=== PATIENT | female | born 1990 | race Caucasian/White ===

== ENCOUNTER 2019-03-31 08:09 | Inpatient (IN) | payer OTHER ==
[2019-03-31] MEDS ORDERED: Buffered Lidocaine 1% SYRIN* 1 ML/SYRINGE INTRADERM ONE (08:46)
[2019-03-31] MEDS ORDERED: Misoprostol TAB* 100 MCG VAGINAL ONE (08:46)
[2019-03-31] MEDS ORDERED: Lactated Ringers 1000 ML Bag* 1,000 ML IV ONE (08:46)
[2019-03-31] MEDS ORDERED: Lactated Ringers 1000 ML Bag* 1,000 ML IV SCH (09:00)
--- NOTE | 2019-03-31 09:07 | HP ---
General Information - Reason for Visit Induction - General Information Maternal Age: 28 Grav: 1 Para: 0 SAB: 0 IEA: 0 Estimated Due Date: 04/21/19 Determined By: LMP Gestational Age in Weeks/Days: 37 Maternal Blood Type and Rh: A Positive - Results this Serology/RPR Result: Non-Reactive Rubella Result: Immune HBsAg Result: Negative HIV Result: Negative GBS Culture Result: Negative Past Medical History Pertinent Past Medical History: Non-Contributory Pertinent Past Surgical History: None Pertinent Family History: Non-Contributory - Antepartal Records Antepartal Records: Reviewed, Complicated by: - IUGR with previously elevated SDR, now normal. 2 mildly elevated BPs but normal for the past month Review of Systems Constitutional: Comfortable CV Complaint: No Respiratory: Shortness of Breath: No Gastrointestinal: No Nausea/Vomiting, Normal Bowel Movement Genitourinary: No Dysuria, No Bleeding, No Leaking Fluid Musculoskeletal: No Complaint Neurological: No Headache Movement: Normal Exam Allergies/Adverse Reactions: Allergies No Known Allergies Allergy (Verified 03/31/19 09:10) - Measurements Height: 5 ft 8 in Weight: 240 lb 8.466 oz Weight in lbs: [phone] Body Mass Index (BMI): 36.6 Pre- Weight: 190 lb Weight Gained This : 50.529 lbs and 0.002 ozs - Exam Breast: Breast Exam Deferred Extremities: No Edema Heart: Normal Rhythm/Heart Sounds HEENT: No Significant Findings Rectal: Rectal Exam Deferred Reflexes: DTR 2+ - Abdominal Exam Abdomen Exam: Non-Tender - Ultrasound/Biophysical Profile Ultrasound Status: Bedside Exam - vertex Targeted Exam Findings Cervical Exam: Closed Station: High Membrane Status: Intact EFM Findings - External Monitor Findings Baseline Heart Rate: 140 External Monitor Findings: Accelerations Present, No Pattern of Variable or Late Decelerations, Variability Moderate, Baseline Stable Contractions: None Assessment/Plan - Assessment Pt is a @37wks with IUGR here for induction of labor. - Obstetrical Risk Factors Obstetrical Risk Factors: IUGR - Plan Plan: Induction, Cervical Ripening
[2019-03-31 10:03] LABS: ABS Basophils 0.1 10^3/ul (0-0.2); ABS Eosinophils 0.1 10^3/ul (0-0.6); ABS Lymphocytes 1.9 10^3/ul (1.0-4.8); ABS Monocytes 0.5 10^3/ul (0-0.8); ABS Neutrophils 6.8 10^3/ul (1.5-7.7); Hematocrit 33 % (35-47); Hemoglobin 11.4 g/dL (12.0-16.0); Lymphocyte % 20.1 %; Mean Corpuscular HGB Conc 34 g/dL (31-36); Mean Corpuscular Hemoglobin 27 pg (27-31); Mean Corpuscular Volume 80 fL (80-97); Mean Platelet Volume 9.5 fL (7.4-10.4); Platelet Count 178 10^3/uL (150-450); Red Blood Count 4.19 10^6 /uL (3.70-4.87); Red Cell Distribution Width 13 % (10-15); White Blood Count 9.5 10^3/uL (3.5-10.8)
[2019-03-31 10:18] LABS: Albumin/Globulin Ratio 1.1 (1-3); Calcium 8.6 mg/dL (8.6-10.3); EGFR African American 167.4 (>60); EGFR Non-African American 138.4 (>60); Globulin 2.8 g/dL (2-4); Potassium 3.7 mmol/L (3.5-5.0); Total Bilirubin 0.2 mg/dL (0.2-1.0); Total Protein 5.8 g/dL (6.4-8.9); Uric Acid 4.6 mg/dL (2.3-6.6)
[2019-03-31 11:12] LABS: Urine Appearance Cloudy; Urine Bilirubin Negative (Negative); Urine Blood Negative (Negative); Urine Color Yellow; Urine Glucose Negative (Negative); Urine Ketones Negative (Negative); Urine Nitrite Negative (Negative); Urine Protein Negative (Negative); Urine Specific Gravity 1.017 (1.010-1.030); Urine Urobilinogen Negative (Negative)
[2019-03-31 11:13] LABS: Urine Bacteria Absent (Absent); Urine Red Blood Cell Trace(0-2/hpf) (Absent); Urine Squamous Epithelial Cell Present (Absent); Urine White Blood Cell Trace(0-5/hpf) (Absent)
[2019-03-31 11:34] LABS: Urine Benzodiazepine Screen None Detected (None Detect); Urine Opiates Screen None Detected (None Detect)
[2019-03-31] MEDS ORDERED: Misoprostol TAB* 100 MCG PO SCH (13:30)
[2019-03-31] MEDS ORDERED: hydrOXYzine HCL TAB* 50 MG PO PRN (22:20)
--- NOTE | 2019-03-31 22:27 | PN ---
Progress Note - Progress Note Date of Service: 03/31/19 Note: Pt starting to feel back pain now. Cx: /-3 FHT: 130bpm. Sections are Cat I, then there are sections with intermittent variable decels but mod variability and +accels. Ctxs q1-4min Plan: expectant management.
[2019-04-01] MEDS ORDERED: Morphine 10 MG/ML VIAL (1 ml) IV ONE (00:45)
[2019-04-01] MEDS ORDERED: Promethazine INJ(RESTRICTED)* 25 MG/ML 1 ML VIAL IV ONE (00:45)
[2019-04-01] MEDS ORDERED: Bupivacaine 0.25% SDV PF* 10 ML VIAL INJ ONE (09:53)
[2019-04-01] MEDS ORDERED: OBEPIDURAL* 250 ML EPIDURAL ONE (10:04)
--- NOTE | 2019-04-01 10:35 | PN ---
Progress Note - Progress Note Date of Service: 04/01/19 Note: See H&P for history. Pt had misprostol x2 yesterday. Ctx appeared to resolve after morphine at 0100, but they seemed to resume this AM. Pt now complaining of fairly intense ctx every 3-5 min, requesting epidural FHT very reassuring with mod variability, no significant decels. Ctx irreg on monitor, not all visualized. Cervix 1cm/90%/-1, intact. Epidural requested.
[2019-04-01] MEDS ORDERED: Lactated Ringers 1000 ML Bag* 1,000 ML IV ONE (10:36)
[2019-04-01] MEDS ORDERED: Phenylephrine 40 MCG/ML SYRINGE IV PUSH PRN (10:36)
[2019-04-01] MEDS ORDERED: EPHEDrine (Pressors)* 50 MG/ML VIAL IV PUSH PRN (10:36)
[2019-04-01] MEDS ORDERED: Famotidine TAB* 20 MG PO PRN (10:36)
[2019-04-01] MEDS ORDERED: Sodium Citrate/Citric Acid* 15 ML UDC PO PRN (10:36)
[2019-04-01] MEDS ORDERED: Lactated Ringers 1000 ML Bag* 1,000 ML IV SCH ×2 (11:00→16:00)
[2019-04-01] MEDS ORDERED: OBEPIDURAL* 250 ML EPIDURAL SCH (11:00)
[2019-04-01] MEDS ORDERED: Oxytocin in LR* 20 UNITS/1,000 ML BAG IVPB SCH (12:00)
[2019-04-01] MEDS ORDERED: ceFOXitin 2 GM IVPREMIX* 2 GM/50 ML BAG ONE (13:35)
[2019-04-01] MEDS ORDERED: Famotidine IV* 10 MG/ML 2 ML (20 mg) ONE (13:36)
[2019-04-01] MEDS ORDERED: ceFOXitin 2 GM IVPREMIX* 2 GM/50 ML BAG IVPB ONE (13:45)
[2019-04-01] MEDS ORDERED: PROCHLORPERAZINE INJ 5 MG/ML 2 ML VIAL ONE (13:51)
[2019-04-01] MEDS ORDERED: Ondansetron INJ* 2 MG/ML VIAL ONE (13:51)
[2019-04-01] MEDS ORDERED: Dexamethasone IV* 4 MG/ML 1 ML (4 MG) ONE (13:51)
[2019-04-01] MEDS ORDERED: Ketorolac INJ* 30 MG/ML 1 ML VIAL ONE (13:51)
[2019-04-01] MEDS ORDERED: EPHEDrine (Pressors)* 50 MG/ML VIAL ONE (13:51)
--- NOTE | 2019-04-01 13:52 | PN ---
Progress Note - Progress Note Date of Service: 04/01/19 Note: Pt comfortable with epidural. Pitocin at 4mU with ctx about every 5 min. FHT noted to have multiple episodes of variable and late declerations with ctx. These resolved a couple times with position changes and O2, but continue to recur. Cx 2cm/90%/-1. Considering the fetus is clearly not tolerating even early early labor, we discussed my concerns about continuing labor. In light of fetus which is IUGR, this is not surprising. After discussion, pt desires to discontinue labor and proceed with a C/S at this time. We discussed the surgery and reviewed risks including hemorrhage, transfusion, infection, organ injury, DVT, etc.. All questions answered, consent signed.
[2019-04-01] MEDS ORDERED: Lidocaine 2% w/ EPI 1:200,000* 20 ML SDV VIAL ONE (14:00)
[2019-04-01] MEDS ORDERED: OXYTOCIN* 10 UNITS/ML 1 ML VIAL ONE (14:00)
[2019-04-01] MEDS ORDERED: Lidocaine 2% PF* 10 ML AMP ONE (14:00)
[2019-04-01] MEDS ORDERED: Scopolamine 1.5 mg* PATCH ONE (14:01)
[2019-04-01] MEDS ORDERED: Morphine PF AMP (0.5MG/ML)* 5 MG/10 ML AMP ONE (14:13)
[2019-04-01] MEDS ORDERED: KETAMINE HCL* 50 MG/ML 10 ML VIAL ONE (14:13)
[2019-04-01] MEDS ORDERED: Midazolam* 1 MG/ML 5 ML VIAL (5 MG) ONE (14:13)
[2019-04-01] MEDS ORDERED: fentaNYL* 50 MCG/ML 2 ML VIAL (100 MCG VIAL) ONE (14:13)
[2019-04-01] MEDS ORDERED: Naloxone* 2 MG in NS 0.9% 250 ML* 250 ML IV PRN (14:43)
[2019-04-01] MEDS ORDERED: DiMENhydriNATE IV* 50 MG/ML VIAL IV PUSH PRN (14:43)
[2019-04-01] MEDS ORDERED: Naloxone* 0.4 MG/ML 1 ML VIAL IV PRN ×2 (14:43→14:53)
[2019-04-01] MEDS ORDERED: diPHENhydraMINE IV* 50 MG/ML 1 ml VIAL (BENADRYL) IV PRN (14:43)
[2019-04-01] MEDS ORDERED: Nalbuphine* 10 MG/ML 1 ML VIAL IV PRN (14:43)
[2019-04-01] MEDS ORDERED: Ondansetron INJ* 2 MG/ML VIAL IV PRN (14:43)
[2019-04-01] MEDS ORDERED: PROCHLORPERAZINE INJ 5 MG/ML 2 ML VIAL IV PRN (14:43)
[2019-04-01] MEDS ORDERED: fentaNYL* 50 MCG/ML 2 ML VIAL (100 MCG VIAL) IV PRN (14:53)
[2019-04-01] MEDS ORDERED: oxyCODONE/Acetamin 5/325 MG* TAB PO PRN ×2 (15:52)
[2019-04-01] MEDS ORDERED: Acetaminophen TAB* 325 MG PO PRN (15:52)
[2019-04-01] MEDS ORDERED: Witch Hazel PAD* JAR TOPICAL PRN (15:52)
[2019-04-01] MEDS ORDERED: oxyCODONE/Acetamin 5/325 MG* TAB PRN (16:56)
[2019-04-01] MEDS: Docusate CAP* 100 MG PO SCH (20:11)
[2019-04-01] MEDS: Simethicone TAB* 80 MG TAB.CHEW PO SCH ×2 (20:11→21:38)
[2019-04-01] MEDS: oxyCODONE/Acetamin 5/325 MG* TAB PO PRN (20:12)
[2019-04-01] MEDS: Ketorolac INJ* 30 MG/ML 1 ML VIAL IV PRN (21:46)
--- NOTE | 2019-04-02 01:50 | OP ---
DATE OF OPERATION: 04/01/19 - ROOM #104 DATE OF : 89 SURGEON: Raquel Holden MD CARD RUNNER: Marisol St CNM ANESTHESIOLOGIST: Dr. Flores. ANESTHESIA: Epidural. PRE-OP DIAGNOSES: 37 plus 1 week gestation, intrauterine growth restriction, and category II heart tracing, remote from delivery. POST-OP DIAGNOSES: 37 plus 1 week gestation, intrauterine growth restriction, and category II heart tracing, remote from delivery. OPERATIVE PROCEDURE: Primary low-transverse section. ESTIMATED BLOOD LOSS: 700 cc. URINE OUTPUT: 200 cc. IV FLUIDS: 1600 cc lactated Ringer's. MATERIALS TO LAB: Cord blood and placenta. INDICATIONS: This patient is a 28-year-old 1, para 0, who presented yesterday at 37 weeks gestation for induction of labor due to intrauterine growth restriction. The patient had been followed with concerns for growth restriction since about 20 weeks. Growth had remained fairly consistent and testing was very reassuring, so she was not delivered until 37 weeks. She received 2 doses of misoprostol on the day of admission, which started some contractions and the heart tracing did show several episodes of decelerations, which recovered. Overnight, the patient continued to have some contractions without heart tracing concerns and she was given morphine to help her rest. This morning, the patient was having the return of contractions , which were quite painful and she received an epidural. Over the next few hours, her cervix changed from about 1 to 2 cm; however, at that point, the heart tracing was noted to have several fairly deep decelerations with each contraction with only low dose Pitocin and contractions about every 5 minutes. Considering the concerns for the heart tracing, the known IUGR and the fact that the patient would require many more hours of labor, we agreed that she would undergo a section at that time. She was extensively counseled and consent was signed. FINDINGS: Normal appearing uterus, fallopian tubes and ovaries. Delivery was productive of a female infant, weighing 4 pounds 6 ounces with Apgars of 9 and 9. Time of delivery was 1448. COMPLICATIONS: None. DESCRIPTION OF PROCEDURE: The risks, benefits, and alternatives were described to the patient and informed consent was obtained. The patient was taken to the operating room with IV running where epidural anesthesia was induced and found to be adequate. The patient was prepped and draped in the normal sterile fashion in the dorsal supine position with leftward tilt. A Pfannenstiel skin incision was made with a scalpel and this was carried down to the underlying fascia sharply. The fascia was then scored in the midline with the scalpel. The incision was extended using Rosen scissors. The rectus muscles were dissected off the rectus fascia using blunt and sharp dissection. The rectus muscles were in the midline bluntly. The peritoneum was also entered bluntly. A bladder blade was placed. A bladder flap was created sharply using Metzenbaum scissors. A low transverse uterine incision was made with the scalpel. This was carried down to the amniotic cavity which was productive of clear fluid. The incision was extended with blunt traction. The head was elevated to the level of the incision without difficulty and delivered through the incision. With fundal pressure, the shoulders and body delivered without difficulty. The had good tone and cried immediately on delivery. The cord was doubly clamped and cut. The was then handed to the awaiting buffet runner. Cord blood was collected. The placenta then delivered with manual extraction. The uterus was then exteriorized and cleared of all clots and debris. Uterine incision was reapproximated using 0 Vicryl in a running-locked fashion. A second layer of imbricating sutures of 0 Vicryl was also placed with good hemostasis. The uterus was then returned to the abdomen, and the incision was reinspected and noted to be hemostatic. The peritoneum was closed with 3-0 Vicryl in a running fashion. The fascia was closed with 0 Vicryl in a running fashion. Subcutaneous tissues were reapproximated using 3-0 Vicryl and interrupted sutures. The skin was then closed with 4-0 Monocryl in a subcuticular stitch. Mastisol and Steri-Strips were placed over the incision which was then covered with a sterile bandage. The patient tolerated the procedure well. Sponge, lap, and needle counts were correct x2. [id number]/[facility] #: [id number] [facility]
[2019-04-02] MEDS: oxyCODONE/Acetamin 5/325 MG* TAB PO PRN ×4 (03:54→20:58)
[2019-04-02] MEDS: Ketorolac INJ* 30 MG/ML 1 ML VIAL IV PRN ×2 (03:55→11:49)
[2019-04-02 05:40] LABS: ABS Basophils 0.1 10^3/ul (0-0.2); ABS Lymphocytes 1.7 10^3/ul (1.0-4.8); ABS Monocytes 0.9 10^3/ul (0-0.8); ABS Neutrophils 12.9 10^3/ul (1.5-7.7); Eosinophil % 0.1 %; Hematocrit 32 % (35-47); Hemoglobin 10.7 g/dL (12.0-16.0); Lymphocyte % 10.8 %; Mean Corpuscular HGB Conc 34 g/dL (31-36); Mean Corpuscular Hemoglobin 27 pg (27-31); Mean Corpuscular Volume 80 fL (80-97); Platelet Count 183 10^3/uL (150-450); Red Blood Count 3.95 10^6 /uL (3.70-4.87); Red Cell Distribution Width 13 % (10-15); White Blood Count 15.6 10^3/uL (3.5-10.8)
[2019-04-02] MEDS: Simethicone TAB* 80 MG TAB.CHEW PO SCH ×4 (08:21→20:59)
[2019-04-02] MEDS: Docusate CAP* 100 MG PO SCH ×3 (08:21→20:59)
[2019-04-02] MEDS ORDERED: Ferrous Gluconate TAB* 324 MG TAB PO SCH (09:00)
[2019-04-02] MEDS: Ibuprofen TAB* 600 MG PO SCH ×2 (16:00→18:47)
[2019-04-03] MEDS: oxyCODONE/Acetamin 5/325 MG* TAB PO PRN ×4 (04:04→17:29)
[2019-04-03] MEDS: Ibuprofen TAB* 600 MG PO SCH ×4 (04:10→17:29)
[2019-04-03] MEDS: Docusate CAP* 100 MG PO SCH ×4 (08:59→21:25)
[2019-04-03] MEDS: Simethicone TAB* 80 MG TAB.CHEW PO SCH ×4 (08:59→21:26)
[2019-04-04] MEDS: Ibuprofen TAB* 600 MG PO SCH ×3 (02:21→14:14)
[2019-04-04 08:11] VITALS: BP 133/78
[2019-04-04] MEDS: Simethicone TAB* 80 MG TAB.CHEW PO SCH ×2 (08:17→14:14)
[2019-04-04] MEDS: Docusate CAP* 100 MG PO SCH ×2 (08:17→14:14)
[2019-04-04] MEDS ORDERED: Scopolamine PATCH Remove* 1 NOTE MISC PATCH OFF PRN (14:44)
== END 2019-04-04 14:15 | disposition home or self-care (01) | DRG 540 ==
LOC: MCHOBOUT 08:09 → MCHOB 08:39
PROVIDERS: ADMIT Obstetrics & Gynecology; ATTEND Obstetrics & Gynecology
PROC: 3E0P7VZ Introduction of Hormone into Female Reproductive, Via Natural or Artificial Opening (ICD-10-PCS; 2019-04-01)
PROC: 3E033VJ Introduction of Other Hormone into Peripheral Vein, Percutaneous Approach (ICD-10-PCS; 2019-04-01)
PROC: 4A1HXCZ Monitoring of Products of Conception, Cardiac Rate, External Approach (ICD-10-PCS; 2019-04-01)
PROC: 10D00Z1 Extraction of Products of Conception, Low, Open Approach (ICD-10-PCS; principal; 2019-04-01 14:16)
DX: O36.5930 Maternal care for other known or suspected poor fetal growth, third trimester, not applicable or unspecified (principal); O41.03X0 Oligohydramnios, third trimester, not applicable or unspecified; O13.4 Gestational [pregnancy-induced] hypertension without significant proteinuria, complicating childbirth; O76 Abnormality in fetal heart rate and rhythm complicating labor and delivery; O99.214 Obesity complicating childbirth; Z3A.37 37 weeks gestation of pregnancy; Z37.0 Single live birth
CPT/HCPCS: 36415; 76815; 80053; 80307; 81003; 81015; 84550; 85025; 86850; 86900; 86901; 87086; 88307; A9270-GY; J0694; J0780; J1100; J1200; J1885; J2001; J2250; J2270; J2405; J2550; J2590; J3010; J3490; S0191

== ENCOUNTER 2020-06-30 06:25 | Inpatient (IN) ==
[2020-06-30] MEDS ORDERED: ceFOXitin 2 GM IVPREMIX 2 GM/50 ML BAG ONE (06:59)
[2020-06-30] MEDS ORDERED: Morphine PF AMP (0.5MG/ML) 5 MG/10 ML AMP ONE (07:32)
[2020-06-30] MEDS ORDERED: Buffered Lidocaine 1% SYRIN 1 ml INTRADERM ONE (07:56)
[2020-06-30] MEDS ORDERED: Lactated Ringers 1000 ml BAG 1,000 ML IV ONE (07:56)
[2020-06-30] MEDS ORDERED: Sodium Citrate/Citric Acid LIQ 15 ML UDC ONE (07:57)
[2020-06-30] MEDS ORDERED: Lactated Ringers 1000 ml BAG 1,000 ML IV SCH ×2 (08:00→11:00)
[2020-06-30] MEDS ORDERED: Lidocaine 1% MPF 5 ML VIAL ONE (08:07)
[2020-06-30] MEDS ORDERED: Phenylephrine 40 mcg/mL 10mL (400mcg) SYRINGE ONE (08:13)
[2020-06-30] MEDS ORDERED: Oxytocin 10 UNITS/ML 1 ML VIAL ONE (08:19)
[2020-06-30] MEDS ORDERED: Ondansetron 4 mg VIAL 2 MG/ML 2 ml VIAL ONE (08:19)
[2020-06-30 08:20] LABS: Albumin 3.2 g/dL (3.2-5.2); Albumin/Globulin Ratio 1.2 (1-3); BUN/Creatinine Ratio 12.9 (8-20); Calcium 8.8 mg/dL (8.6-10.3); EGFR African American 120.6 (>60); EGFR Non-African American 99.6 (>60); Globulin 2.7 g/dL (2-4); Potassium 4.1 mmol/L (3.5-5.0); Total Bilirubin 0.2 mg/dL (0.2-1.0); Total Protein 5.9 g/dL (6.4-8.9)
[2020-06-30] MEDS ORDERED: DiMENhydriNATE IV 50 mg/ml 1 ml VIAL IV PUSH PRN (09:03)
[2020-06-30] MEDS ORDERED: Naloxone 0.4 mg VIAL 0.4 mg/ml 1 ml VIAL IV PRN ×2 (09:03→09:04)
[2020-06-30] MEDS ORDERED: Ondansetron 4 mg VIAL 2 MG/ML 2 ml VIAL IV PRN (09:04)
[2020-06-30] MEDS ORDERED: diPHENhydraMINE IV 50 MG/ML 1 ml VIAL (BENADRYL) IV PRN (09:04)
[2020-06-30] MEDS ORDERED: oxyCODONE/Acetamin 5/325 mg TAB PO PRN (09:04)
[2020-06-30] MEDS ORDERED: Witch Hazel PAD JAR TOPICAL PRN (10:20)
[2020-06-30] MEDS ORDERED: Dibucaine 1% OINT 28.35 GM TUBE PR PRN (10:20)
[2020-06-30] MEDS ORDERED: Glycerin ADULT 2.4 gm SUPP PR PRN (10:20)
[2020-06-30 13:45] LABS: Urine Benzodiazepine Screen None Detected (None Detect); Urine Cannabinoids Screen None Detected (None Detect); Urine Opiates Screen None Detected (None Detect)
[2020-06-30] MEDS: oxyCODONE/Acetamin 5/325 mg TAB PO PRN ×2 (16:18→20:11)
[2020-07-01 06:56] LABS: ABS Basophils 0.1 10^3/ul (0-0.2); ABS Eosinophils 0.1 10^3/ul (0-0.6); ABS Lymphocytes 1.7 10^3/ul (1.0-4.8); ABS Monocytes 0.4 10^3/ul (0-0.8); ABS Neutrophils 7.6 10^3/ul (1.5-7.7); Eosinophil % 0.5 %; Hematocrit 30 % (35-47); Lymphocyte % 16.8 %; Mean Corpuscular HGB Conc 33 g/dL (31-36); Mean Corpuscular Hemoglobin 27 pg (27-31); Mean Corpuscular Volume 81 fL (80-97); Platelet Count 134 10^3/uL (150-450); Red Blood Count 3.75 10^6 /uL (3.70-4.87); Red Cell Distribution Width 15 % (10-15); White Blood Count 9.8 10^3/uL (3.5-10.8)
[2020-07-02 08:01] VITALS: BP 126/71
== END 2020-07-02 14:40 | disposition home or self-care (01) | DRG 540 ==
LOC: MCHOB 06:25
PROVIDERS: ADMIT Obstetrics & Gynecology; ATTEND Obstetrics & Gynecology